=== PATIENT | female | born 1990 | race African-American/Black ===

== ENCOUNTER 2018-03-09 15:52 | Inpatient (IN) | payer OTHER ==
[2018-03-09] MEDS ORDERED: OXYTOCIN/LR 20 UNIT/1,000 ML BAG IV ONE (16:20)
[2018-03-09] MEDS ORDERED: BUTORPHANOL 1 MG/ML INJ IV PRN (16:21)
[2018-03-09] MEDS ORDERED: CARBOPROST TROME 250 MCG/ML IM PRN (16:21)
[2018-03-09] MEDS ORDERED: Ringers Lactate 1,000 ML IV PRN (16:21)
[2018-03-09] MEDS ORDERED: PROMETHAZINE 25 MG/ML VIAL IM PRN (16:21)
[2018-03-09] MEDS ORDERED: MEPERIDINE HCL 25 MG/0.5 ML IV PRN (16:21)
[2018-03-09] MEDS ORDERED: MIDAZOLAM HCL 2 MG/2 ML INJ IV PRN (16:21)
[2018-03-09] MEDS ORDERED: METHYLERGONOVINE 0.2MG/ML AMP IM PRN (16:21)
[2018-03-09] MEDS ORDERED: HYDRALAZINE HCL 20 MG/ML VIAL ONE (16:43)
[2018-03-09] MEDS ORDERED: Ringers Lactate 1,000 ML IV SCH (17:00)
[2018-03-09] MEDS ORDERED: OXYTOCIN/LR 20 UNIT/1,000 ML BAG IV SCH (17:00)
[2018-03-09 17:20] LABS: RPR Titer ND
[2018-03-09 17:23] LABS: Absolute Lymphocytes (CBC) 2.1 K/uL (0.7-4.9); Absolute Monocytes 0.4 K/uL (0.1-1.3); Absolute Neutrophil 3.7 K/uL (1.8-8.0); Basophils % 0.6 % (0-1.3); Eosinophils % 0.7 % (0-4.4); Hematocrit 33.9 % (36.0-45.0); MCH 28.9 pg (27.0-35.0); MCV 86.4 fL (80-100); MPV 10.2 fL (7.6-11.3); Monocytes % 6.6 % (3.3-12.3); RBC Red Blood Cell Count 3.92 M/uL (3.86-4.86)
[2018-03-09] MEDS ORDERED: HYDRALAZINE HCL 20 MG/ML VIAL IV PRN (17:38)
[2018-03-09 17:55] VITALS: BMI 35.4
[2018-03-09 18:05] LABS: Urine Appearance CLEAR; Urine Bilirubin NEGATIVE (NEG); Urine Blood 3+ (NEG); Urine Color YELLOW; Urine Glucose NEGATIVE (NEG); Urine Protein TRACE (NEG); Urine Urobilinogen 0.2 mg/dL (0.2-1.0); Urine pH 7.5 (5.0-7.0)
[2018-03-09 18:06] LABS: Urine Microscopic Reflex ORDER UMIC
[2018-03-09 18:14] LABS: Urine Bacteria >50 /HPF (<20)
[2018-03-09 18:15] LABS: Urine Amorphous Sediment 2+ /HPF (NONE SEEN); Urine Culture Reflex Order REFLEXED
[2018-03-09 18:29] LABS: Blood Morphology Comment NOT SEEN (NOT SEEN); Platelet Estimate ADEQ; Platelets, Giant PRESENT; Urine White Blood Cell Casts OK
[2018-03-09] MEDS ORDERED: MAGNESIUM SULF/STERILE WATER 1,000 ML IV ONE (19:22)
[2018-03-09] MEDS ORDERED: MAGNESIUM SULF/STERILE WATER 1,000 ML IV SCH (20:00)
[2018-03-09] MEDS ORDERED: LIDOCAINE 2% INJ, 20 mL 20 ML ONE (20:05)
[2018-03-09] MEDS ORDERED: DOCUSATE NA/SENNA CONC 1 TAB PO PRN (20:57)
[2018-03-09] MEDS ORDERED: IBUPROFEN 200 MG TAB PO PRN (20:57)
[2018-03-09] MEDS ORDERED: Oxycodone HCl/Acetaminophen 1 TAB TAB PO PRN ×2 (20:57)
[2018-03-09] MEDS ORDERED: ACETAMINOPHEN 500 MG TAB PO PRN (20:57)
[2018-03-09] MEDS ORDERED: DIPHENHYDRAMINE 25 MG TAB/CAP PO PRN (20:57)
[2018-03-09] MEDS ORDERED: BISACODYL 10 MG RECTAL SUPP RECT PRN (20:57)
[2018-03-09] MEDS ORDERED: OXYTOCIN/LR 20 UNITS/1,000 ML BAG IV SCH (21:00)
[2018-03-09] MEDS ORDERED: CEFAZOLIN/NS 1gm 1 GM/50 ML BAG IVPB ONE (21:29)
[2018-03-09] MEDS ORDERED: CEFAZOLIN/SWI 1gm 1 GM/10 ML SYR ONE (21:36)
[2018-03-09 21:43] LABS: RPR (Rapid Plasma Reagin) NON-REACT (NON-REACT)
--- NOTE | 2018-03-09 21:55 | PREOPHP ---
Date of Admission: 03/09/2018 Gricelda Butt, 27-year-old, 2, para 1, history of premature delivery at 32 weeks. The patie nt has been on progesterone injections until 35 weeks of . She has also had 2 Celestone inj ections. The patient was noted about 2 weeks ago it start having increase in her blood pressure. Pamela mandel has also been having recurrent headaches. Today,she came in the office read reporting significant headache, blood pressure to 160/100, +1 pretibial edema and brisk reflexes. Sent to Labor and Delive ry. Her initial blood pressure was 158/105, again with brisk reflexes and pretibial edema. Urine sp ecimen is pending. We will give the patient 5 mg of Apresoline for immediate control of her blood pr essure and if the urine comes back positive, even trace, we will start her on magnesium sulfate. She is 3.5 cm, 60% effaced. She is on light Pitocin that just was started and was having irregular cont ractions even before she was admitted. Once we get membranes ruptured, I think she will go into the active labor pattern and deliver relatively soon once we get her into the active phase of labor. Ful l labor talk given. Diagnosis at this point is intrauterine gestation, 38 weeks, with probable preeclampsia-favorable cer vix and probable early labor. JAMES/LARS Voice ID: [id number]
[2018-03-10] MEDS: PHENOBARBITAL 32.4 MG TABLET PO SCH ×2 (00:30→06:30)
--- NOTE | 2018-03-10 06:34 | OP ---
Surgeon: Manas Burns MD A 27-year-old, 2, para 1, first baby 32 weeks. The patient is 38 weeks' gestation, had proge sterone during the up until 35 weeks. She noted to have onset of high blood pressure durin g the last 2 to 3 visits. Today came in with significant headache. Blood pressure of 160/100, brisk reflexes, +1 pretibial edema, and irregular contractions. Noted to be 3.5 cm, 60%-70% effaced, vert ex, well applied. Sent to Labor and Delivery and first blood pressure was 158/104, second was 174/99 . The patient was given 5 mg of Apresoline IV. Trace protein was seen in the catheterized urine spe cimen, and at this point, magnesium sulfate 4 g loading dose was started. Rupture of membranes, dhruv r fluid, 1 mg of Stadol, otherwise Lamaze breathing techniques to best advantage went rapidly to comp lete second stage of about 20 to 25 minutes. Spontaneous vaginal delivery of 7 pounds 4 ounces, male infant, Apgars 9 and 9. Midline second-degree laceration simulating episiotomy, repaired with 2-0 c hromic after local infiltration. Schultze delivery of the placenta, which was inspected and noted to be intact and normal, 300 cc or less blood loss. Nunez catheter was reinserted. Magnesium sulfate will be reinstituted, 1 g of Ancef will be given for prophylaxis because of the catheter. When diure sis begins, we will discontinue the magnesium and start her on phenobarbital. Rh positive. Immune t o Rubella. Negative beta strep screen. The patient tolerated all procedures well. Final Diagnoses: Term intrauterine 38 weeks, preeclampsia, vaginal delivery, magnesium sul fate, and Apresoline given. JAMES/ROLANDAL Voice ID: [id number] Report ID: [id number]
--- NOTE | 2018-03-10 07:40 | DS ---
A 27-year-old, 2, para 1, previous delivery at 32 weeks, 38 weeks' gestation. The patient becerra d progesterone during the first part of the until 35 weeks. Also received Celestone 2 dose s. Came in with elevated blood pressures, slight protein in the urine, pretibial edema, brisk reflex es, and report of headache, 3.5 cm and possible early labor. Sent to Labor and Delivery. Initial bl ood pressure 158/104, second blood pressure 174/99, was given Apresoline 5 mg IV at that point. Star yamileth on IV drip Pitocin and subsequently was given magnesium sulfate 4 g loading dose. Received 1 mg of Stadol during the labor. Delivered a 7-pound 4-ounce male infant, Apgars 9 and 9. Small second d egree laceration simulating episiotomy, repaired with 2-0 chromic. Schultze delivery of the placenta , which was inspected and noted to be intact and normal. Less than 300 cc blood loss. is afebrile, ambulating, voiding. Magnesium sulfate has been discontinued. She has started to diurese . Blood pressures have moderated, but still in the 150 systolic range. No TELETYPE OPERATOR symptoms. The patien t will be dismissed either later this morning, later today, or tomorrow morning to report back to my office in 6 weeks for followup, to report any temperature elevation of 100 degrees or greater, severe pain, heavy bleeding, or any other type of abnormalities. Dismissed with phenobarbital to be taken 3 times a day for 3 additional days. Final Diagnoses: Term intrauterine 38 weeks, preeclampsia, history of premature labor, vag inal delivery. JAMES/LARS Voice ID: [id number] Report ID: [id number]
[2018-03-10 07:49] VITALS: BP 118/65; TEMP 97.5
[2018-03-13 03:28] LABS: HBsAG Nonreactive (Nonreactive)
== END 2018-03-10 11:00 | disposition home or self-care (01) | DRG 775 ==
LOC: 2ND-WC 15:52
PROVIDERS: ADMIT Specialist; ATTEND Specialist
PROC: 10907ZC Drainage of Amniotic Fluid, Therapeutic from Products of Conception, Via Natural or Artificial Opening (ICD-10-PCS; principal; 2018-03-09)
PROC: 10E0XZZ Delivery of Products of Conception, External Approach (ICD-10-PCS; 2018-03-09)
PROC: 0KQM0ZZ Repair Perineum Muscle, Open Approach (ICD-10-PCS; 2018-03-09)
DX: O70.1 Second degree perineal laceration during delivery (principal); Z37.0 Single live birth; O14.94 Unspecified pre-eclampsia, complicating childbirth; Z3A.38 38 weeks gestation of pregnancy
CPT/HCPCS: 36415; 81003; 81015; 83735; 85025; 86592; 87086; 87088; 87340; J0360; J0595; J0690; J2175; J2210; J2550; J2590; J3475

== ENCOUNTER 2018-05-17 09:02 | Day surgery (SDC) | payer OTHER ==
[2018-05-16 10:54] LABS: Absolute Lymphocytes (CBC) 2.3 K/uL (0.7-4.9); Absolute Monocytes 0.4 K/uL (0.1-1.3); Absolute Neutrophil 2.5 K/uL (1.8-8.0); Basophils % 0.9 % (0-1.3); Eosinophils % 2.3 % (0-4.4); Hematocrit 38.2 % (36.0-45.0); Lymphocytes % 42.4 % (15.3-44.8); MCH 27.9 pg (27.0-35.0); MCV 84.7 fL (80-100); MPV 9.3 fL (7.6-11.3); Monocytes % 7.6 % (3.3-12.3); RBC Red Blood Cell Count 4.51 M/uL (3.86-4.86)
[2018-05-17] MEDS ORDERED: Ringers Lactate 1,000 ML IV ONE (09:23)
[2018-05-17] MEDS ORDERED: SCOPOLAMINE HYDROBROMIDE PATCH TD ONE (09:23)
[2018-05-17 09:27] LABS: Specific Gravity 1.015 (1.005-1.030)
[2018-05-17] MEDS ORDERED: PROPOFOL 200 MG/20 ML VIAL IV ONE (10:05)
[2018-05-17] MEDS ORDERED: LIDOCAINE 2% MPF 5 ML VIAL ONE (10:05)
[2018-05-17] MEDS ORDERED: MIDAZOLAM HCL 2 MG/2 ML INJ ONE (10:05)
[2018-05-17] MEDS ORDERED: FENTANYL CITR 100 MCG/2 ML ONE (10:06)
[2018-05-17] MEDS ORDERED: ONDANSETRON HCL 40 MG/20 ML VIAL ONE (10:07)
[2018-05-17] MEDS ORDERED: ROCURONIUM 50 MG/5 ML VIAL IV ONE (10:08)
[2018-05-17] MEDS ORDERED: GLYCOPYRROLATE 0.2 MG/ML SYR ONE (11:31)
[2018-05-17] MEDS ORDERED: KETOROLAC 30 MG/ML INJ ONE (11:53)
[2018-05-17] MEDS ORDERED: NEOSTIGMINE 1 MG/ML -5 ML SYRINGE ONE (11:53)
[2018-05-17] MEDS: FENTANYL CITR 100 MCG/2 ML ONE ×2 (12:22→12:31)
[2018-05-17 13:56] VITALS: BP 132/74; TEMP 98; O2SAT 97
--- NOTE | 2018-05-17 13:56 | OP ---
Date of Procedure: 05/17/2018 Surgeon: Analy Soriano MD Doctor Assistant: Gio Issa. Preoperative Diagnoses: Large left ovarian cyst, persistent without resolution even after her delive ry. Left lower quadrant pain during the . Irregular bleeding. Postoperative Diagnoses: Large left ovarian cyst, persistent without resolution even after her deliv jeffrey. Left lower quadrant pain during the . Irregular bleeding. Procedures Performed: Laparoscopy pelvic washings, left oophorectomy with aspiration of the cyst ins denny the abdomen and placement in a bag and retrieval, and diagnostic hysteroscopy, checking the posit ion of the intrauterine device. Estimated Blood Loss: Minimal. Complications: No complications. Drains: No drains. Specimens: Left pelvic washings and left ovary with the cyst. Condition: Stable. Indications For Procedure: The patient is a 28-year-old, 2, para 2 with a large left ovarian cyst. Her research analyst, Dr. Burns had detected this and monitored during it her last and . This was not changed in its size, and so she was referred for removal. The patient is breast-feeding and she has irregular periods. She has a ParaGard IUD for contraceptio n. The transvaginal ultrasound done on April 26 shows the cyst is a 10 cm complex large cyst. There is a 3 cm density that had hyper and hypoechoic areas. The possibility that this is a dermoid versus a cystadenoma is present. She was consented for diagnostic laparoscopy, left ovarian cystectomy or left oophorectomy, and a [place] gnostic hysteroscopy to evaluate the bleeding and to ensure that the ParaGard IUD remained in place e janice after the surgery was completed with uterine manipulator being inserted and removed. Description Of Procedure: After informed consent was verified, patient was brought to the OR, placed in a supine fashion on the operating table. After general anesthesia was given, she was placed in d orsal lithotomy position. Pelvic exam was performed. Uterus was found to be small. Left adnexal ma ss palpated mostly in the anterior cul-de-sac clearly very well mobile. No scar tissue in the premix operator concentrate ior or anterior cul-de-sac. After abdomen, vulva, vagina, and perineum were prepped and draped in a sterile fashion, Nunez was pl aced to drain the bladder, and a diagnostic VCare inserted. The strings of the IUD were visualized o utside. When this was done, once the diagnostic VCare was introduced, this was fixed in place, this area was draped. A 1 cm infraumbilical incision was made with a scalpel using the open laparoscopy technique. Fascia was incised, tagged. Peritoneum was entered bluntly. S retractors placed and Ana introduced. Si te of entry was checked and was unremarkable. The appendix was visualized and unremarkable, retrocec al. The liver and upper peritoneal surfaces, omentum unremarkable without any evidence of masses or endometriosis. The patient was placed in T-cesar, 5 mm left lower quadrant suprapubic ports were placed. After doing a complete survey of the pelvic cavity, pelvic washings were performed and retrieved. The left tube , the right tube, right ovary completely normal. The left ovary and cyst were visualized together. Attempted to trace the infundibulopelvic ligament and identify the normal area of the ovarian tissue. This was very complex due to the stretch effect from the cyst. The cyst wall appeared to be very t hin in some area and possibility of performing just a left cystectomy with complete removal of the cy st without rupturing it seemed extremely small, so at this point the ovarian capsule was incised to a ttempt it. The cyst wall was extremely in this area, and there was not a chance that I could remove this without rupturing and getting the fluid everywhere. So, the dissection was carried anteriorly a ll the way to the utero-ovarian ligament between the mesosalpinx and the ovary. Once the dissection was done posteriorly, the infundibulopelvic ligament was taken down separately. Then, the rest of th e ovary was detached using the bipolar LigaSure. Once all the specimen was removed, detached, then n eedle aspirated was used to suction all the fluid out. In the site of entry, the needle tip was held with the help of [place], and the entire specimen was placed into a 10 cm retrieval bag, introduced through the umbilical port and the left lower quadrant 5 mm port was used with a 5 mm 30 degree lens in order to perform this task. Thorough irrigation and suction were performed. There was excellent hemostasis at the pedicle of the left ovary. The left tube appeared to be completely vascular, and did not have any devascularization so the tube was undistorted and left intact. The ports were remov ed under direct vision after thorough irrigation and suction of the pelvic cavity were performed. Th e bag was kept closed after the suprapubic and left lower quadrant ports were removed. Then, the gas was desufflated and the Ana was removed. The bag was retrieved to the outside. The opening was opened up, held with Kylie clamps, then the cyst wall was opened up carefully, dissecting, keeping th e whole specimen in the bag. Then, suction of the rest of the cyst was performed. The cyst was scre wed out through the 1.5 cm incision at the fascia was extended slightly. After the specimen was retrieved completely intact without any spillage. The fascia was closed with the help of a 0 Vicryl in [id number] fashion. Subcutaneous tissues and with a simple 0 Vicryl s titch. All the skin incisions closed with 4-0 Monocryl in simple interrupted fashion. VCare was removed carefully without pulling out the IUD. Nunez was removed. Then, speculum was plac ed to inspect the cervix. Anterior lip grasped with a long Allis clamp. Diagnostic hysteroscopy wit h 30-degree lens and a SlimLine hysteroscope was performed using normal saline. The IUD was in place inside the uterus, by pushing on the tip of the IUD distally. This was pushed back up to the fundus completely. Once this was done, the strings were straighten out, I was unable to straighten the sec ond string, but 1 string was hanging out at least 2.5 cm outside the external os and so this would be enough to retrieve the IUD when time comes and inspect to make sure for surveillance that is intact. There was optimal placement of the IUD when I left it. The scope was removed. Instrument, needle, and sponge counts were done after everything was removed, and they were correct. The patient tolerated t he procedure well. JANNETTE/LARS Voice ID: [id number] Report ID: [id number]
== END 2018-05-17 13:35 | disposition home or self-care (01) ==
LOC: OR 09:02
PROVIDERS: ATTEND Obstetrics & Gynecology
PROC: 0UT14ZZ Resection of Left Ovary, Percutaneous Endoscopic Approach (ICD-10-PCS; 2018-05-17)
PROC: 0UJD8ZZ Inspection of Uterus and Cervix, Via Natural or Artificial Opening Endoscopic (ICD-10-PCS; 2018-05-17)
PROC: 0U914ZZ Drainage of Left Ovary, Percutaneous Endoscopic Approach (ICD-10-PCS; principal; 2018-05-17 10:00)
DX: D27.1 Benign neoplasm of left ovary (principal); N83.202 Unspecified ovarian cyst, left side; F41.9 Anxiety disorder, unspecified; F32.9 Major depressive disorder, single episode, unspecified
CPT/HCPCS: 36415; 81025; 85025; 86850; 86900; 86901; 88108; 88305; J2250; J2405; J2710; J3010

== ENCOUNTER 2024-09-10 12:17 | Emergency (ER) | payer OTHER ==
--- OUTSIDE RECORDS SUMMARY | 2024-09-10 12:21 | XMS REPORT | Continuity of Care Document ---
Author Name Unknown Address [address] [facility] [address] [place] [address] [facility] thconnect Address [address] [facility]. 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 [employer] Material Name Role Phone DAVID YOUNG Attending Clinician Unavailable BOOM REID Attending Clinician Unavailable JOSHUA ANDRADE Attending Clinician Unava ilable [email or web address]_S Attending Clinician Unavaila KRISTEL Farncois Attending Clinician Unavailable LAB90 Attending Clinician Unavailable [email or web address]_S Admitting Clinician Roderick hauser Payers Payer Name Policy Type Policy Number Effective Date Expirati on Date Source [place] [address] [employer]ENEFIT 2 [id number] 2022 00:00:00 Problems Condition Name Condition Details Condition Category Status Onset Date Resolution Date Last Treatment Date Treating Clinician Comments Source Prediabete s Prediabete s Disease Active 2022-11 00:00: 00 Suzie Priestold - Externa l Depression Depression Disease Active 05-30 00:00: 00 Suzie Vogel - Externa l Anxiety Anxiety Disease Active 05-30 00:00: 00 Suzie Vogel - Externa l Hypertensi on Hypertensi on Disease Active 05-30 00:00: 00 Suzie Priestold - Externa l Obesity Obesity Disease Active 05-30 00:00: 00 Suzie Vogel - Externa l Social History Social Habit Start Date Stop Date Quantity Comments Source Gender identity Noemí Vogel - External Sexual orientation Susana jarrett Jaspreet - External Alcohol intake 2023-12-01 00:00:00 2023-12-01 00:00:00 1.43 /d Suzie Vogel - External History of Social function 2023-08-15 00:00:00 2023-08-15 00:00:00 Suzie Vogel - External Education - What is the highest level of school you have completed or the highest degree you have received? 2023-05-30 00:00:00 2023-05-30 00:00:00 Bachelor's degree (e.g., BA, AB, BS) Suzie Vogel - External Alcohol Comment 2023-05-30 00:00:00 2023-05-30 00:00:00 moderately Suzie Vogel - External Tobacco use and exposure 2023-05-27 00:00:00 2023-05-27 00:00:00 Smokeless tobacco non-user Suzie Vogel - External Sex Assigned At 1990 00:00:00 1990 00:00:00 Suzie Vogel - External Smoking Status Start Date Stop Date Source Never smoked tobacco Suzie Vogel - External Medications Ordered Medication Name Filled Medication Name Start Date Stop Date Current Medication? Ordering Clinician Indication Dosage Frequency Signature (SIG) Comments Components Source Phentermine HCl 37.5 MG oral Tablet 12-01 00:00: 00 Yes [id number] 37.5mg Take 1 tablet (37.5 mg total) by mouth every morning (before breakfast) . Suzie costa Losartan Potassium (COZAAR) 100 MG oral Tablet 2022-11 00:00: 00 Yes [id number] 100mg Take 1 tablet (100 mg total) by mouth daily. Suzie Carrera Externa l Sertraline HCl 50 MG oral Tablet 2022-11 00:00: 00 Yes [id number] 50mg Take 1 tablet (50 mg total) by mouth daily. Suzie Carrera Externa l Phentermine HCl 37.5 MG oral Tablet 2022-11 00:00: 00 12-01 00:00 :00 No [id number] 37.5mg Take 1 tablet (37.5 mg total) by mouth every morning (before breakfast) . Suzie costa Phentermine HCl 37.5 MG oral Tablet 2022-11 00:00: 00 Yes [id number] 37.5mg Take 1 tablet (37.5 mg total) by mouth every morning (before breakfast) . Suzie costa Phentermine HCl 37.5 MG oral Tablet 2022-11 00:00: 00 10-03 00:00 :00 No [id number] 37.5mg Take 1 tablet (37.5 mg total) by mouth every morning (before breakfast) . Suzie costa Phentermine HCl 37.5 MG oral Tablet 2022-11 00:00: 00 Yes [id number] 37.5mg Take 1 tablet (37.5 mg total) by mouth every morning (before breakfast) . Suzie costa Amlodipine Besylate 10 MG oral Tablet 08-04 00:00: 00 Yes [id number] 10mg Take 1 tablet (10 mg total) by mouth daily. Suzie costa Phentermine HCl 15 MG oral Capsule 08-04 00:00: 00 Yes [id number] 15mg Take 1 capsule (15 mg total) by mouth every morning. Suzie costa hydroCHLORO thiazide 12.5 MG oral Capsule 08-04 00:00: 00 12-01 00:00 :00 No [id number] 12.5mg Take 1 capsule (12.5 mg total) by mouth daily. Suzie costa Semaglutide -Weight Management (Wegovy) 0.25 MG/0.5ML subcutaneou s Solution Auto-inject or 08-04 00:00: 00 09-01 00:00 :00 No [id number] .25mg Inject 0.25 mg into the skin once a week. Suzie costa Vitamin D, Ergocalcife rol, 1.25 MG (18804 UT) oral Capsule 06-30 00:00: 00 12-01 00:00 :00 No [id number] 94153G Take 1 capsule (50,000 units total) by mouth once a week Suzie costa Amlodipine Besylate (NORVASC) 5 MG oral Tablet 06-22 00:00: 00 Yes [id number] 10mg Take 2 tablets (10 mg total) by mouth daily Suzie costa Losartan Potassium (COZAAR) 100 MG oral Tablet 05-30 12:03: 45 05-30 00:00 :00 No 100mg Take 1 tablet (100 mg total) by mouth daily Suzie costa Amlodipine Besylate (NORVASC) 5 MG oral Tablet 05-30 12:03: 45 05-30 00:00 :00 No 5mg Take 1 tablet (5 mg total) by mouth daily Suzie costa Sertraline HCl 50 MG oral Tablet 05-30 12:03: 45 05-30 00:00 :00 No 50mg Take 1 tablet (50 mg total) by mouth daily Suzie costa LORAZEPAM OR 05-30 12:03: 45 05-30 00:00 :00 No .5mg Take 0.5 mg by mouth Suzie costa Losartan Potassium (COZAAR) 100 MG oral Tablet 05-30 00:00: 00 Yes [id number] 100mg Take 1 tablet (100 mg total) by mouth daily Suzie costa Sertraline HCl 50 MG oral Tablet 05-30 00:00: 00 Yes [id number] 50mg Take 1 tablet (50 mg total) by mouth daily Suzie costa Lorazepam (ATIVAN) 0.5 MG oral Tablet tablet 05-30 00:00: 00 Yes .5mg QD Take 1 tablet (0.5 mg total) by mouth daily as needed Suzie costa Amlodipine Besylate (NORVASC) 5 MG oral Tablet 05-30 00:00: 00 Yes [id number] 5mg Take 1 tablet (5 mg total) by mouth daily Suzie costa Immunizations Ordered Immunization Name Filled Immunization Name Date Status Comments Source Tdap- (Boostrix, Adacel) 2018-01-05 00:00:00 Completed Suzie Vogel - External Tdap- (Boostrix, Adacel) 2018-01-05 00:00:00 Completed Suzie Pozoybold - External Tdap- (Boostrix, Adacel) 2018-01-05 00:00:00 Completed Suzie Vogel - External Meningococcal Vaccine- Conjugate(Menactra) 2011-11-08 00:00:00 Completed Suzie Seybold - External Meningococcal Vaccine- Conjugate(Menactra) 2011-11-08 00:00:00 Completed Suzie Seybold - External Meningococcal Vaccine- Conjugate(Menactra) 2011-11-08 00:00:00 Completed Suzie Vogel - External HPV 4 (Human Papillomavirus) 2011-04-19 00:00:00 Completed Suzie Vogel - External HPV 4 (Human Papillomavirus) 2011-04-19 00:00:00 Completed Suzie Vogel - External HPV 4 (Human Papillomavirus) 2011-04-19 00:00:00 Completed Suzie Seybold - External HPV 4 (Human Papillomavirus) 2010-12-17 00:00:00 Completed Suzie Pozoybold - External HPV 4 (Human Papillomavirus) 2010-12-17 00:00:00 Completed Suzie Pozoybold - External HPV 4 (Human Papillomavirus) 2010-12-17 00:00:00 Completed Suzie Pozoybold - External HPV 4 (Human Papillomavirus) 2010-10-14 00:00:00 Completed Suzie Pozoybamparo - External HPV 4 (Human Papillomavirus) 2010-10-14 00:00:00 Completed Suzie Pozoybold - External HPV 4 (Human Papillomavirus) 2010-10-14 00:00:00 Completed Suzie Pozoybold - External HPV 4 (Human Papillomavirus) Unknown Completed Suzie camp - External Meningococcal Vaccine- Conjugate(Menactra) Unknown Completed Suzie Ellis eybold - External Tdap- (Boostrix, Adacel) Unknown Completed Suzie Vogel - External HPV 4 (Human Papillomavirus) Unknown Completed Suzie Walker ld - External Meningococcal Vaccine- Conjugate(Menactra) Unknown Completed Suzie Ellis eybold - External Tdap- (Boostrix, Adacel) Unknown Completed Suzie Seybold - External HPV 4 (Human Papillomavirus) Unknown Completed Suzie Priesto ld - External Meningococcal Vaccine- Conjugate(Menactra) Unknown Completed Suzie Ellis eybold - External Tdap- (Boostrix, Adacel) Unknown Completed Suzie Pozoybold - External HPV 4 (Human Papillomavirus) Unknown Completed Suzie Priesto ld - External Meningococcal Vaccine- Conjugate(Menactra) Unknown Completed Suzie Ellis eybold - External Tdap- (Boostrix, Adacel) Unknown Completed Suzie Pozoybold - External Vital Signs Vital Name Observation Time Observation Value Comments S kita Systolic blood pressure 2023-12-01 22:37:00 122 mm[Hg] Suzie Pozoybo ld - External Diastolic blood pressure 2023-12-01 22:37:00 78 mm[Hg] Suzie Pozoybo ld - External Heart rate 2023-12-01 22:37:00 84 /min Andreise y Seybold - External Body temperature 2023-12-01 22:37:00 36.33 Pricila Suzie Seybold - External Respiratory rate 2023-12-01 22:37:00 16 /min Suzie Pozoybold - External Body height 2023-12-01 22:37:00 165.1 cm Noemí benavidez Seybold - External Body weight 2023-12-01 22:37:00 82.668 kg Noemí ey Seybold - External BMI 2023-12-01 22:37:00 30.33 kg/m2 Noemí benavidez Seybold - External Oxygen saturation in Arterial blood by Pulse oximetry 2023-12-01 22:37:00 100 /min Suzie Pozoybo ld - External Systolic blood pressure 2023-10-03 22:03:00 122 mm[Hg] Suzie Pozoybo ld - External Diastolic blood pressure 2023-10-03 22:03:00 80 mm[Hg] Suzie Pozoybo ld - External Heart rate 2023-10-03 22:03:00 88 /min Kelse y Seybold - External Body temperature 2023-10-03 22:03:00 36.44 Pricila Suzie Seybold - External Respiratory rate 2023-10-03 22:03:00 14 /min Suzie Seybold - External Body height 2023-10-03 22:03:00 165.1 cm Noemí ey Seybold - External Body weight 2023-10-03 22:03:00 86.183 kg Noemí ey Seybold - External BMI 2023-10-03 22:03:00 31.62 kg/m2 Noemí ey Seybold - External Body weight 2023-09-14 16:28:00 88.633 kg Noemí ey Seybold - External BMI 2023-09-14 16:28:00 32.52 kg/m2 Noemí ey Seybold - External Systolic blood pressure 2023-09-14 16:28:00 120 mm[Hg] Suzie Seybo ld - External Diastolic blood pressure 2023-09-14 16:28:00 78 mm[Hg] Suzie Seybo ld - External Heart rate 2023-09-14 16:28:00 100 /min Kelse y Seybold - External Respiratory rate 2023-09-14 16:28:00 16 /min Suzie Seybold - External Body height 2023-09-14 16:28:00 165.1 cm Noemí ey Seybold - External Systolic blood pressure 2023-09-01 20:26:00 124 mm[Hg] Suzie Seybo ld - External Diastolic blood pressure 2023-09-01 20:26:00 82 mm[Hg] Suzie Seybo ld - External Heart rate 2023-09-01 20:26:00 93 /min Kelse y Seybold - External Body temperature 2023-09-01 20:26:00 36.11 Pricila Suzie Seybold - External Respiratory rate 2023-09-01 20:26:00 14 /min Suzie Seybold - External Body height 2023-09-01 20:26:00 165.1 cm Noemí ey Seybold - External Body weight 2023-09-01 20:26:00 90.719 kg Noemí ey Seybold - External BMI 2023-09-01 20:26:00 33.28 kg/m2 Noemí ey Seybold - External Systolic blood pressure 2023-08-04 20:50:00 130 mm[Hg] Suzie Seybo ld - External Diastolic blood pressure 2023-08-04 20:50:00 82 mm[Hg] Suzie Seybo ld - External Heart rate 2023-08-04 20:50:00 91 /min Kelse y Seybold - External Body temperature 2023-08-04 20:50:00 36.11 Pricila Suzie Seybold - External Respiratory rate 2023-08-04 20:50:00 14 /min Suzie Seybold - External Body height 2023-08-04 20:50:00 165.1 cm Noemí ey Seybold - External Body weight 2023-08-04 20:50:00 94.348 kg Noemí ey Seybold - External BMI 2023-08-04 20:50:00 34.61 kg/m2 Noemí ey Seybold - External Systolic blood pressure 2023-06-22 20:32:00 126 mm[Hg] Suzie Seybo ld - External Diastolic blood pressure 2023-06-22 20:32:00 84 mm[Hg] Suzie Seybo ld - External Heart rate 2023-06-22 20:32:00 78 /min Kelse y Seybold - External Body temperature 2023-06-22 20:32:00 37.11 Pricila Suzie Seybold - External Respiratory rate 2023-06-22 20:32:00 18 /min Suzie Seybold - External Body height 2023-06-22 20:32:00 165.1 cm Noemí ey Seybold - External Body weight 2023-06-22 20:32:00 92.08 kg Noemí ey Seybold - External BMI 2023-06-22 20:32:00 33.78 kg/m2 Noemí ey Seybold - External Systolic blood pressure 2023-05-30 16:46:00 124 mm[Hg] Suzie Seybo ld - External Diastolic blood pressure 2023-05-30 16:46:00 90 mm[Hg] Suzie Seybo ld - External Heart rate 2023-05-30 16:46:00 80 /min Kelse y Seybold - External Body temperature 2023-05-30 16:46:00 36.28 Pricila Suzie Seybold - External Respiratory rate 2023-05-30 16:46:00 15 /min Suzie Seybold - External Body height 2023-05-30 16:46:00 165.1 cm Noemí ey Seybold - External Body weight 2023-05-30 16:46:00 93.895 kg Noemí Priestold - External BMI 2023-05-30 16:46:00 34.45 kg/m2 Noemí Priestold - External Encounters Start Date/Time End Date/Time Encounter Type Admission Type Attending [facility] Care Department Encounter ID Source 2024-09-13 10:00:00 2024-09-13 10:00:00 Outpatient DAVID YOUNG [id number] [facility] 2024-08-22 00:00:00 2024-08-22 00:00:00 Outpatient BOOM REID [id number] [facility] 2024-05-14 00:00:00 2024-05-14 00:00:00 Outpatient DAVID YOUNG [id number] [facility] 2024-02-24 00:00:00 2024-02-24 00:00:00 Outpatient BOOM REID [id number] [facility] 2024-01-05 16:45:00 2024-01-05 16:45:00 Outpatient JOSHUA ANDRADE [id number] [facility] 2023-12-07 00:00:00 2023-12-07 00:00:00 Outpatient BOOM REID [id number] [facility] 2023-12-01 16:30:00 2023-12-01 16:30:00 Outpatient DAVID YOUNG [id number] [facility] 2023-11-25 00:00:00 2023-11-25 00:00:00 Outpatient BOOM REID [id number] [facility] 2023-11-16 00:00:00 2023-11-16 00:00:00 Outpatient DAVID YOUNG [id number] [facility] 2023-11-03 16:30:00 2023-11-03 16:30:00 Outpatient DAVID YOUNG [id number] [facility] 2023-11-03 00:00:00 2023-11-03 00:00:00 Outpatient PREZASBOOM SUZIE MEDLEY [id number] [facility] 2023-10-03 16:00:00 2023-10-03 16:00:00 Outpatient HUNDL, [facility]ID [facility] [id number] [facility] 2023-09-30 16:30:00 2023-09-30 16:30:00 Outpatient HUNDL, DAVID MEDLEY [id number] [facility] 2023-09-28 00:00:00 2023-09-28 00:00:00 Outpatient HUNDL, DAVID MEDLEY [id number] [facility] 2023-09-25 00:00:00 2023-09-25 00:00:00 Outpatient [email or web address]_Ka diyala_S [facility]IV [facility] [id number] [facility] 2023-09-14 11:30:00 2023-09-14 11:30:00 Outpatient PRESSLEY KRISTEL MEDLEY [id number] [facility] 2023-09-01 15:30:00 2023-09-01 15:30:00 Outpatient HUNDL, DAVID MEDLEY [id number] [facility] 2023-08-26 00:00:00 2023-08-26 00:00:00 Outpatient HUNDL, [facility]ID MEDLEY [id number] [facility] 2023-08-11 00:00:00 2023-08-11 00:00:00 Outpatient HUNDL, DAVID MEDLEY [id number] [facility] 2023-08-09 00:00:00 2023-08-09 00:00:00 Outpatient HUNDL, DAVID MEDLEY [id number] [facility] 2023-08-08 00:00:00 2023-08-08 00:00:00 Outpatient HUNDL, DAVID MEDLEY [id number] [facility] 2023-08-04 16:00:00 2023-08-04 16:00:00 Outpatient HUNDL, DAVID MEDLEY [id number] [facility] 2023-06-30 00:00:00 2023-06-30 00:00:00 Outpatient DAVID YOUNG SUZIE [id number] [facility] 2023-06-23 10:10:00 2023-06-23 10:10:00 Outpatient LAB90 SUZIE SUZIE [id number] [facility] 2023-06-22 15:30:00 2023-06-22 15:30:00 Outpatient DAVID YOUNG SUZIE MEDLEY [id number] [facility] 2023-05-30 11:45:00 2023-05-30 11:45:00 Outpatient BOOM REID SUZIE MEDLEY [id number] [facility] Notes Date/Time Note Provider Source 2023-12-01 16:40:49 Chief Complaint Patient presents with Follow-Up Visit Follow up weight loss Corrine Linton LVN [facility] 2023-08-04 15:53:38 Formatting of this n ote is different from the original. Chief Complaint Patient presents with Follow-up Follow up on Amlodipine. Patient is doing well. Weight Problem Patient would like to discuss weight management. Simran Sadler MA II [facility] 2023-06-22 15:34:36 Formatting of this n ote is different from the original. Chief Complaint Patient presents with Physical Tianna Del Cid CMA I [facility]
[2024-09-10 12:56] LABS: Absolute Eosinophils 0.1 K/uL (0-0.5); Absolute Lymphocytes (CBC) 2.4 K/uL (0.7-4.9); Absolute Monocytes 0.3 K/uL (0.1-1.3); Absolute Neutrophil 2.6 K/uL (1.8-8.0); Basophils % 0.9 % (0-1.3); Eosinophils % 1.5 % (0-4.4); Hematocrit 36.1 % (36.0-45.0); Hemoglobin 11.4 g/dL (12.0-15.0); Lymphocytes % 44.4 % (15.3-44.8); MCH 27.6 pg (27.0-35.0); MCHC 31.6 g/dL (32.0-36.0); MCV 87.2 fL (80-100); MPV 8.5 fL (7.6-11.3); Monocytes % 4.8 % (3.3-12.3); Neutrophils % 48.4 % (41.7-73.7); Platelets 409 thou/uL (152-406); RBC Red Blood Cell Count 4.14 M/uL (3.86-4.86); Red Cell Distribution Width 16.1 % (12.1-15.2)
[2024-09-10 13:10] LABS: Albumin 3.4 g/dL (3.4-5.0); Albumin/Globulin Ratio 0.9 (1.1-1.8); Anion Gap 7.9 mEq/L (5.0-15.0); Bilirubin Total 0.3 mg/dL (0.2-1.0); Globulin 3.9 g/dL (2.3-3.5); Potassium 2.9 mEq/L (3.5-5.1); Protein, Total 7.3 g/dL (6.4-8.2)
[2024-09-10 13:44] LABS: Specific Gravity 1.019 (1.005-1.030)
[2024-09-10 13:47] LABS: Specific Gravity 1.019 (1.005-1.030); Sqamous Epithelial <5 /HPF (None Seen); Urine Bacteria None Seen /HPF (<20); Urine Bilirubin NEGATIVE (Negative); Urine Blood 2+ (Negative); Urine Clarity Clear (Clear); Urine Color Light-Yellow (Yellow); Urine Culture Reflex Order NOT NEEDED; Urine Glucose NEGATIVE (Negative); Urine Ketones NEGATIVE (Negative); Urine Microscopic Reflex YN ORDER UMIC; Urine Mucus 1+ /HPF (None Seen); Urine Nitrite NEGATIVE (Negative); Urine Protein NEGATIVE (Negative); Urine Urobilinogen Normal (Normal); Urine WBC <5 /HPF (<5)
[2024-09-10] MEDS ORDERED: POTASSIUM CL SA 10 MEQ TAB PO ONE (13:54)
--- NOTE | 2024-09-10 14:14 | RAD REPORT ---
EXAMINATION: CT Abdomen Pelvis W Contrast CLINICAL INDICATION: Female, 34 years old. R flank pain TECHNIQUE: CT abdomen and pelvis was performed, after the administration of IV contrast, as per [facility] protocol. Axial, sagittal and coronal reconstructions were obtained. One or more of the following dose reduction techniques were used: Automated exposure control, adjustment of the mA and k V according to patient size, and iterative reconstruction. Unless otherwise specified, incidental findings do not require dedicated imaging follow-up. COMPARISON: 05/03/2014 FINDINGS: LOWER CHEST: The visualized lung bases are clear. LIVER: Normal in size and contour. No focal lesion. BILIARY SYSTEM: No suspicious abnormalities. SPLEEN: Normal size. No focal lesion. PANCREAS: No mass, ductal dilation, or alex-pancreatic fluid. ADRENALS: Normal; no mass. KIDNEYS: Normal size and contour. No hydronephrosis. URINARY BLADDER: Unremarkable. GASTROINTESTINAL TRACT: No evidence of free air, significant intra-abdominal free fluid, bowel obstru ction or abscess. APPENDIX: Normal appendix. LYMPH NODES: No lymphadenopathy. MUSCULOSKELETAL: No acute or suspicious osseous abnormality. ADDITIONAL FINDINGS: None. IMPRESSION: No acute or concerning abnormalities seen in the abdomen or pelvis.
--- NOTE | 2024-09-10 14:26 | EDPHYS ---
Physician Documentation [facility] Name: Gricelda Butt Age: 34 yrs Sex: Female : 1990 Arrival Date: 09/10/2024 Time: 12:17 Bed 19 Private MD: ED Physician Rc Toussaint HPI: 09/10 12:30 This 34 yrs old Black Female presents to ER via Ambulatory with complaints of Abdominal ec2 Pain. 12:30 Patient arrives today for evaluation of abdominal pain right sided. Reports pain has ec2 been intermittent ongoing for the past several days. Patient reports of associated nausea without vomiting. Reports history of previous ovarian cyst. Reports no urinary complaints. Denies any fevers or chills. Reports no changes in pain with p.o. intake.. 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 - Infectious Disease History:: Denies. - Social history:: Smoking status: Patient denies any tobacco usage or history of. Patient uses alcohol, occasionally. ROS: 12:30 Constitutional: as per hpi ec2 Exam: 12:30 Constitutional: GEN: NAD Head: atraumatic Eyes: EOMI Ears: External ears are ec2 normal. CV: regular rate LUNGS: no respiratory distress ABD: non-distended, soft, tender in the right abdomen, not guarding, not rigid SKIN: no evidence of rashes MSK: no evidence of trauma Vital Signs: 12:24 Resp 17; Temp 98.5(O); Weight 86.18 kg; Height 5 ft. 5 in. ; Pain 2/10; tm6 12:24 BP 152 / 92; Pulse 80; Pulse Ox 100% on R/A; MAP 110 mmHg; tm6 14:34 BP 127 / 88; Pulse 77; Resp 17; Pulse Ox 99% on R/A; rs5 12:24 Body Mass Index 31.62 (86.18 kg, 165.1 cm) tm6 12:24 Pain Scale: Adult tm6 MDM: 12:21 Medical Screening Exam initiated ec2 12:30 Data reviewed: vital signs. ED course: Patient arrives today for evaluation of ec2 right-sided abdominal pain. Examination remarkable for abdominal findings as above. Will obtain lab work urine studies as well as CT imaging. Differential diagnosis include pyelonephritis, urinary tract infection, ureteral stone, appendicitis . 09/10 12:29 Order name: CBC with Diff; Complete Time: 13:45 ec2 09/10 12:29 Order name: CMP; Complete Time: 13:45 ec2 09/10 12:29 Order name: Lipase; Complete Time: 13:45 ec2 09/10 12:29 Order name: Test, Urine; Complete Time: 13:45 ec2 09/10 12:29 Order name: Urinalysis w/ reflexes; Complete Time: 14:07 ec2 09/10 12:29 Order name: CT Abd/Pelvis - IV Contrast Only; Complete Time: 14:17 ec2 09/10 12:29 Order name: IV Saline Lock; Complete Time: 12:47 ec2 09/10 12:29 Order name: Labs collected and sent; Complete Time: 12:47 ec2 Administered Medications: 14:09 Drug: Potassium Chloride PO 40 mEq PO once Route: PO; rs5 14:34 Follow up: Response: No adverse reaction rs5 Disposition Summary: 09/10/24 14:26 Discharge Ordered Notes: Location: Home ec2 Condition: Stable ec2 Diagnosis - Hypokalemia ec2 - Lower abdominal pain, unspecified ec2 Followup: ec2 - With: Private Physician - When: - Reason: Re-evaluation by your physician Discharge Instructions: - Discharge Summary Sheet ec2 - Abdominal Pain, Adult ec2 Forms: - Work release form ec2 - Medication Reconciliation Form ec2 - Antibiotic Education ec2 - Prescription Opioid Use ec2 - Patient Portal Instructions ec2 - Leadership Thank You Letter ec2 Signatures: Dispatcher [employer] Anil Rivero RN RN rs5 Rc Toussaint MD MD ec2 Brendan Corbin RN RN tm6
--- NOTE | 2024-09-10 14:26 | ER ---
Nurse's Notes [facility] Name: Gricelda Butt Age: 34 yrs Sex: Female : 1990 Arrival Date: 09/10/2024 Time: 12:17 Bed 19 Private MD: Diagnosis: Hypokalemia;Lower abdominal pain, unspecified Presentation: 09/10 12:24 Chief complaint: Patient states: Tuesday I started to get pain in RLQ. If I take a deep tm6 breath or put pressure on it, it hurts. The pain comes and goes, moving makes it worse. No urinary s/s. Coronavirus screen: Client denies travel out of the [place] in the last 14 days. Ebola Screen: Patient negative for fever greater than or equal to 101.5 degrees Fahrenheit, and additional compatible Ebola Virus Disease symptoms Patient denies exposure to infectious person. Patient denies travel to an Ebola-affected area in the 21 days before illness onset. No symptoms or risks identified at this time. Initial Sepsis Screen: Does the patient meet any 2 criteria? No. Patient's initial sepsis screen is negative. Does the patient have a suspected source of infection? No. Patient's initial sepsis screen is negative. Risk Assessment: Do you want to hurt yourself or someone else? Patient reports no desire to harm self or others. Onset of symptoms was September 07, 2024. 12:24 Method Of Arrival: Ambulatory tm6 12:24 Acuity: YARY 3 tm6 Triage Assessment: 12:27 General: Appears in no apparent distress. Behavior is calm, cooperative. Pain: tm6 Complains of pain in right upper quadrant and right lower quadrant Pain currently is 2 out of 10 on a pain scale. at worst was 8 out of 10 on a pain scale. Pain began 2-3 days ago. EENT: No signs and/or symptoms were reported regarding the EENT system. Neuro: Level of Consciousness is awake, alert, obeys commands, Oriented to person, place, time, situation. Cardiovascular: Patient's skin is warm and dry. Respiratory: Airway is patent Respiratory effort is even, unlabored, Respiratory pattern is regular, symmetrical. GI: Abdomen is flat, non-distended, Abd is soft and non tender X 4 quads. Reports lower abdominal pain, upper abdominal pain. : No signs and/or symptoms were reported regarding the genitourinary system. Derm: No signs and/or symptoms reported regarding the dermatologic system. Musculoskeletal: No signs and/or symptoms reported regarding the musculoskeletal system. 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 - Infectious Disease History:: Denies. - Social history:: Smoking status: Patient denies any tobacco usage or history of. Patient uses alcohol, occasionally. Screenin:30 [facility] ED Fall Risk Assessment (Adult) History of falling in the last 3 months, rs5 including since admission No falls in past 3 months (0 pts) Confusion or Disorientation No (0 pts) Intoxicated or Sedated No (0 pts) Impaired Gait No (0 pts) Mobility Assist Device Used No (0 pt) Altered Elimination No (0 pt) Score/Fall Risk Level 0 - 2 = Low Risk Oriented to surroundings, Maintained a safe environment. Abuse screen: Denies threats or abuse. Nutritional screening: No deficits noted. Tuberculosis screening: No symptoms or risk factors identified. Assessment: 12:30 General: Appears in no apparent distress. comfortable, Behavior is calm, cooperative. rs5 Pain: Complains of pain in right lower quadrant Pain currently is 2 out of 10 on a pain scale. Quality of pain is described as aching. 12:30 Neuro: Level of Consciousness is awake, alert, obeys commands, Oriented to person, rs5 place, time, situation. Cardiovascular: Patient's skin is warm and dry. Respiratory: Airway is patent Respiratory effort is even, unlabored, Respiratory pattern is regular, symmetrical. GI: Abdomen is round non-distended, Bowel sounds present X 4 quads. Abd is soft and non tender X 4 quads. : No signs and/or symptoms were reported regarding the genitourinary system. EENT: No signs and/or symptoms were reported regarding the EENT system. Derm: Skin is intact, Skin is pink, warm \T\ dry. Musculoskeletal: Range of motion: intact in all extremities. 13:35 Reassessment: Patient and/or family updated on plan of care and expected duration. Pain rs5 level reassessed. Patient is alert, oriented x 3, equal unlabored respirations, skin warm/dry/pink. 14:33 Reassessment: No changes from previously documented assessment. rs5 Vital Signs: 12:24 Resp 17; Temp 98.5(O); Weight 86.18 kg; Height 5 ft. 5 in. ; Pain 2/10; tm6 12:24 BP 152 / 92; Pulse 80; Pulse Ox 100% on R/A; MAP 110 mmHg; tm6 14:34 BP 127 / 88; Pulse 77; Resp 17; Pulse Ox 99% on R/A; rs5 12:24 Body Mass Index 31.62 (86.18 kg, 165.1 cm) tm6 12:24 Pain Scale: Adult tm6 ED Course: 12:20 Patient arrived in ED. im 12:21 Rc Toussaint MD is Attending Physician. ec2 12:26 Triage completed. tm6 12:28 Arm band placed on right wrist. tm6 12:30 Patient has correct armband on for positive identification. Placed in gown. Bed in low rs5 position. Side rails up X2. 12:37 No provider procedures requiring assistance completed. Inserted saline lock: 20 gauge rs5 in left antecubital area, using aseptic technique. Blood collected. Flushed with 10 mL NS. 12:47 Anil Arredondo, RN is Primary Nurse. rs5 13:58 CT Abd/Pelvis - IV Contrast Only In Process Unspecified. EDMS 14:20 IV discontinued, intact, bleeding controlled, No redness/swelling at site. Pressure rs5 dressing applied. 14:30 Provided Education on: discharge instructions . rs5 Administered Medications: 14:09 Drug: Potassium Chloride PO 40 mEq PO once Route: PO; rs5 14:34 Follow up: Response: No adverse reaction rs5 Medication: 12:49 VIS not applicable for this client. rs5 Outcome: 14:20 Discharged to home ambulatory, rs5 14:20 Condition: stable 14:20 Discharge instructions given to patient, family, Instructed on discharge instructions, follow up and referral plans. Demonstrated understanding of instructions, follow-up care, 14:26 Discharge ordered by . ec2 14:34 Patient left the ED. rs5 Signatures: Dispatcher [employer] EDAL Anil Arredondo RN RN rs5 Cass Tafoya Edwin, MD MD ec2 Brendan Corbin RN RN tm6 Corrections: (The following items were deleted from the chart) 12:24 Chief complaint: Patient states: Tuesday I started to get pain in RLQ. If I take a tm6 deep breath or put pressure on it, it hurts. tm6 : 12:30 General: Appears in no apparent distress. comfortable, Behavior is calm, rs5 cooperative, rs5 : 12:30 Pain: Complains of pain in right lower quadrant rs5 rs5
[2024-09-10 16:26] VITALS: BP 152/92; TEMP 98.5; O2SAT 100
== END 2024-09-10 14:34 | disposition home or self-care (01) ==
LOC: ER 12:17
DX: E87.6 Hypokalemia (principal); R10.31 Right lower quadrant pain
CPT/HCPCS: 85025; 81001; 36415; 81025; 83690; 80053; 74177; Q9967; 99284